=== PATIENT | female | born 1945 | race Caucasian/White ===

== ENCOUNTER 2016-05-22 06:09 | Day surgery (SDC) | payer MEDICARE, BC ==
[2016-05-17 17:34] LABS: HEMATOCRIT 46.8 % (36.0-48.0); HEMOGLOBIN 14.7 g/dL (12.0-16.0)
[2016-05-17 17:45] LABS: BUN (BLOOD UREA NITROGEN) 19 MG/DL (6-23); CALCIUM, SERUM 8.8 MG/DL (8.5-10.4); CHLORIDE, SERUM 107 MMOL/L (96-112); CO2 (CARBON DIOXIDE) 27 MMOL/L (24-34); CREATININE 1.06 MG/DL (0.55-1.02); GFR AFRICAN AMERICAN 62 ML/MIN (>=60); GFR NON AFRICAN AMERICAN 54 ML/MIN (>=60); GLUCOSE, SERUM 100 MG/DL (60-99); SODIUM, SERUM 145 MMOL/L (135-148)
--- NOTE | ~2016-05-22 | OP ---
Record Of Operation [facility] [address] [place]. [address] NAME: ADRIA LINO : 49 STATUS : [facility] UNIT#: [id number] AGE: 70 ADM/REG DATE : 05/22/16 MR#: [id number] REPORT SERV DATE: 05/23/16 DICTATED BY: MARINO CLAROS DATE: 05/22/16 REPORT STATUS : Draft TRANSCRIBED BY: ROSA DATE: 05/22/16 DATE OF PROCEDURE: 05/22/2016 ANESTHESIA: General. COMPLICATIONS: None. ESTIMATED BLOOD LOSS: 100 mL. PREOPERATIVE DIAGNOSES: 1. Uterine prolapse. 2. Cystocele and rectocele. 3. Vaginal vault prolapse. POSTOPERATIVE DIAGNOSES: 1. Uterine prolapse. 2. Cystocele and rectocele. 3. Vaginal vault prolapse. OPERATION: 1. Laparoscopic-assisted vaginal hysterectomy with bilateral salpingo-oophorectomy. 2. Anterior and posterior repair. 3. Enterocele repair. 4. Vaginal vault suspension. 5. Cystoscopy. DESCRIPTION OF PROCEDURE: The patient was taken to the operating room and placed on the operating table in Memo stirru. After adequate anesthesia, the patient was prepped and draped in usual sterile fashion. Freitas and Hulka uterine manipulator were inserted. A Veress needle was then inserted, and the abdomen was insufflated with C02 gas. A 5 mm trocar was inserted. Intraabdominal position was confirmed. A 5 mm trocar was inserted in the right and left lower quadrant under direct visualization. The ureters were identified, kept out of harm's way at all times. The infundibulopelvic ligaments were skeletonized, cauterized and cut with the LigaSure. Next, the round ligaments and broad ligaments were cauterized and cut with the LigaSure. Next, the upper portion of the uterine vessels were cauterized and cut with the LigaSure. Next, attention was turned vaginally. The cervix was grasped with single-tooth tenaculum and a posterior colpotomy was performed. The uterosacral ligaments were clamped, cut, ligated 0 Vicryl suture. Next, the cardinal ligaments were clamped, cut, and ligated using the cautery and also the uterine vessels were cauterized and cut. #1 Vicryl suture and #1 PDS suture was placed high as possible through the posterior aspect of the uterosacral ligament and tied in the vaginal angle for vaginal vault suspension. The vaginal cuff was reapproximated in transverse fashion using interrupted [id number] 0 Vicryl suture. The enterocele sac was obliterated with 0 PDS suture. Next, the anterior vaginal wall was sharply and bluntly dissected off the underlying anterior fibromuscular Record Of Operation [facility] [address] [place]. [address] NAME: ADRIA LINO : 49 STATUS : [facility] PAT#: [id number] AGE: 70 ADM/REG DATE : 05/22/16 MR#: [id number] REPORT SERV DATE: 05/23/16 DICTATED BY: MARINO CLAROS DATE: 05/22/16 REPORT STATUS : Draft TRANSCRIBED BY: ROSA DATE: 05/22/16 tissue. The anterior fibromuscular tissue was plicated with 0 PDS and 0 Vicryl suture. The anterior compartment was irrigated. Hemostasis was noted to be good. Excess anterior vaginal wall excess and reapproximated with running 2-0 Vicryl suture. Next, the posterior vaginal wall was sharply and bluntly dissected off the underlying posterior fibromuscular tissue. The posterior fibromuscular tissue was plicated with 0 PDS and 0 Vicryl suture. The posterior compartment was irrigated. Hemostasis was noted to be good. Excess posterior vaginal wall was excised and reapproximated with running 2-0 Vicryl suture. Cystoscopy was performed with bilateral ureteral efflux of Pyridium dye and no damage or sutures to the bladder. Rectal exam was performed. There was no sutures or indentations palpated. Repeat look with the laparoscopy was performed. Hemostasis was noted to be good. Surgicel was placed over the vaginal cuff for further hemostasis. Trocars removed under direct visualization. Gas allowed escape to the abdominal cavity. Skin was reapproximated for Monocryl and Dermabond. There was a large 3-4 cm skin tag on the left to the anterior abdominal wall, which was excised without difficulty. Freitas and vaginal pack were placed. The patient tolerated the procedure well and was taken to the recovery room in stable condition. JEANA Marino Claros M.D. / [id number] CC: Deysi Lawton M.D. James Abell Jr., M.D.
[~2016-05-22 06:09] MED LIST: CYMBALTA60 PO; KLOR-CON 1010 MEQ PO; LEXAPRO10 PO; LOSARTAN/HCTZ; MOBIC7.5 PO; NEXIUM20 M1 PO; PROBIOTIC; TOPAMAX50 MG PO; TRAZ50 PO; ZOCOR40 PO
[2016-05-22 15:40] LABS: HEMOGLOBIN 13.4 g/dL (12.0-16.0); MEAN CORPUS HGB CONC 32.9 g/dL (32.0-36.0); MEAN CORPUSCULAR HEMOGLOB 29.9 pg (26.0-34.0); MEAN CORPUSCULAR VOLUME 90.8 fL (80-100); MEAN PLATELET VOLUME 9.6 fL (9.2-13.0); PLATELET COUNT 166 10/3/uL (150-400); RBC DISTRIBUTION WIDTH 13.9 % (12.0-16.0); RED CELL COUNT 4.48 10/6/uL (4.0-5.6); WHITE BLOOD CELLS 13.2 10/3/uL (4.5-10.5)
[2016-05-22 15:45] LABS: HEMATOCRIT 40.7 % (36.0-48.0); MANUAL DIFF YES %
[2016-05-22 16:04] LABS: BAND NEUTROPHILS 2 %; LYMPHOCYTES 7 %; LYMPHOCYTES ABSOLUTE (CALC) 0.92 10/3/uL (0.67-4.30); MONOCYTES 2 %; MONOCYTES ABSOLUTE (CALC) 0.26 10/3/uL (0.21-1.20); NEUTROPHILS ABSOLUTE (CALC) 12.01 10/3/uL (2.02-8.40); PLATELET ESTIMATE ADQ (ADEQUATE); RBC MORPHOLOGY NORM (NORMAL); SEGMENTED NEUTROPHIL (0) 89 %; TOTAL NUCLEATED CELLS 100
== END 2016-05-22 16:55 | disposition home or self-care (01) ==
LOC: SDC 06:09
PROVIDERS: Obstetrics & Gynecology Gynecology
PROC: 0USG4ZZ Reposition Vagina, Percutaneous Endoscopic Approach (ICD-10-PCS; 2016-05-22)
PROC: 0HB7XZZ Excision of Abdomen Skin, External Approach (ICD-10-PCS; 2016-05-22)
PROC: 0UT9FZZ Resection of Uterus, Via Natural or Artificial Opening With Percutaneous Endoscopic Assistance (ICD-10-PCS; principal; 2016-05-22 07:15)
PROC: 0UTC7ZZ Resection of Cervix, Via Natural or Artificial Opening (ICD-10-PCS; 2016-05-22 07:15)
PROC: 0UT2FZZ Resection of Bilateral Ovaries, Via Natural or Artificial Opening With Percutaneous Endoscopic Assistance (ICD-10-PCS; 2016-05-22 07:15)
PROC: 0UT7FZZ Resection of Bilateral Fallopian Tubes, Via Natural or Artificial Opening With Percutaneous Endoscopic Assistance (ICD-10-PCS; 2016-05-22 07:15)
PROC: 0UQF0ZZ Repair Cul-de-sac, Open Approach (ICD-10-PCS; 2016-05-22 07:15)
PROC: 0JQC0ZZ Repair Pelvic Region Subcutaneous Tissue and Fascia, Open Approach (ICD-10-PCS; 2016-05-22 07:15)
PROC: 0JQC0ZZ Repair Pelvic Region Subcutaneous Tissue and Fascia, Open Approach (ICD-10-PCS; 2016-05-22 07:15)
DX: D26.1 Other benign neoplasm of corpus uteri (principal); D17.1 Benign lipomatous neoplasm of skin and subcutaneous tissue of trunk; I10 Essential (primary) hypertension; E78.5 Hyperlipidemia, unspecified; K21.9 Gastro-esophageal reflux disease without esophagitis; F41.9 Anxiety disorder, unspecified; F32.9 Major depressive disorder, single episode, unspecified; E78.00 Pure hypercholesterolemia, unspecified; M19.90 Unspecified osteoarthritis, unspecified site; Z98.890 Other specified postprocedural states; Z88.8 Allergy status to other drugs, medicaments and biological substances; Z88.5 Allergy status to narcotic agent
CPT/HCPCS: 36415; 80048; 85014; 85018; 85025; 86850; 86900; 86901; 88305; 88307; 93005; A9270-GY; J0694; J1170; J1885; J2250; J2405; J2710; J3010